=== PATIENT | male | born 1955 | race Caucasian/White ===

== ENCOUNTER 2020-08-11 11:21 | Day surgery (SDC) | payer MEDICARE, BC ==
[~2020-08-11] VITALS: Ht 182.9 cm; Wt 99.5 kg
[~2020-08-11 11:21] MED LIST: ALLO100 PO; ASPI325 PO; ASPI81CH PO; Aspir 8181 MG PO; CALC.25 PO; CALCAVITD PO; CEPH500 PO; COLC.6 PO; CYAN100 PO; Colace100 MG PO; Crestor40 MG PO; Crutch1 EACH; DIVA500ER PO; DULO30 PO; DULO60 PO; ENOX100I SQ; ENTRESTO 24 MG1 EACH PO; FENO160 PO; FERR325 PO; FISH OIL 1,2001 EAC7 PO; FISH1000 PO; FLUT.05NI; FURO40 PO; Furosemide40 MG PO; GABA300 PO; GEMF600 PO; GLIP10 PO; GLIP5 PO; HYDACE5 PO; HYDACE5325 PO; HYDCHL25 PO; HYDMOR2 PO; HYDR1TAB94 PO; Hydrocodone-Ap1 EA23 PO; LEVEMIR FL100 UNIT/1 SC; LEVSOD100 PO; LORA2 PO; LOSA25 PO; LOVA20 PO; Lopressor 25 mg25 MG PO; MAGN84 PO; MAGNESIUM OXID500 MG PO; METO25; METO25ER PO; MULVITMINF PO; MYCO250 PO; Micro-K10 MEQ; NIAC500 PO; NITR.4SL SL; OMEP20ER PO; OMEPRAZOLE MAGN20 MG PO; ONDA4 PO; OXYACE5T PO; POTA10T PO; POTCHL10ER PO; POTCHL20ER PO; PRED5 PO; Percocet 5-3251 EACH PO; QUALAQUIN; RAPAMUNE PO; RXHYDMOR2 PO; RXONDA4ODT MM; SELENIUM PO; SIMV40 PO; SIROLIMUS; TESTTP TOP; TOUJEO SOL300 UNIT/1 SC; TOUJEO SOL300 UNIT/1 SQ; TOUJEO SOL300 UNIT/2 SQ; UBID10 PO; WARF10 PO; WARF4 PO
== END 2020-08-11 14:38 | disposition home or self-care (01) ==
LOC: ORSCSDS 11:21
PROVIDERS: Internal Medicine Gastroenterology
PROC: 0DBM8ZX Excision of Descending Colon, Via Natural or Artificial Opening Endoscopic, Diagnostic (ICD-10-PCS; principal; 2020-08-11 12:45)
DX: Z86.010 Personal history of colon polyps (principal); D12.4 Benign neoplasm of descending colon; K57.30 Diverticulosis of large intestine without perforation or abscess without bleeding; K64.8 Other hemorrhoids; G47.33 Obstructive sleep apnea (adult) (pediatric); Z94.0 Kidney transplant status; Z95.818 Presence of other cardiac implants and grafts; I10 Essential (primary) hypertension; I25.10 Atherosclerotic heart disease of native coronary artery without angina pectoris; I25.2 Old myocardial infarction; E11.9 Type 2 diabetes mellitus without complications; K21.9 Gastro-esophageal reflux disease without esophagitis; Z79.899 Other long term (current) drug therapy; Z79.84 Long term (current) use of oral hypoglycemic drugs; Z79.4 Long term (current) use of insulin
CPT/HCPCS: 82947; 88305; J2704; J7120

== ENCOUNTER 2021-04-10 11:02 | Inpatient (IN) | payer MEDICARE, BC ==
[~2021-04-10] VITALS: Ht 182.9 cm; Wt 93.9 kg
[2021-04-10 11:45] LABS: Hematocrit 44.2 % (37.0-53.0); Hemoglobin 14.2 g/dL (13.5-17.5); Mean Corpuscular HGB 30.7 pg (26.0-34.0); Mean Corpuscular HGB Conc 32.1 g/dL (31.5-36.5); Mean Corpuscular Volume 96 fL (80-100); Mean Platelet Volume 10.8 fL (9.1-12.4); Platelet Count 111 K/mm3 (150-400); RDW Coefficient Variation 13.8 % (11.7-14.2); RDW Standard Deviation 48.6 fL (35.1-46.3); Red Blood Cell Count 4.62 M/mm3 (4.30-5.90)
[2021-04-10 12:03] LABS: Albumin, Blood 3.1 g/dL (3.4-5.0); Albumin/Globulin Ratio 0.9 (0.8-1.8); Bilirubin, Total 1.1 mg/dL (0.1-1.0); Bun/Creatinine Ratio 15.2 (12.0-20.0); Calcium, Blood 9.4 mg/dL (8.5-10.1); Creatinine, Blood 3.16 mg/dL (0.60-1.20); Globulin, Blood 3.6 g/dL (2.2-4.0); Potassium, Blood 4.6 mmol/L (3.5-5.5); Total Protein, Blood 6.7 g/dL (6.4-8.2)
[2021-04-10 12:25] LABS: Prothrombin Time Results 10.8 Sec (9.7-11.5)
[2021-04-10 12:36] LABS: BAND PERCENT MAN 29 % (0-8); BASOPHILS PERCENT MAN 0 % (0-2); EOSINOPHILS PERCENT MAN 0 % (0-6); LYMPHOCYTES ABSOLUTE MAN 0.19 K/mm3 (0.84-5.20); LYMPHOCYTES PERCENT MAN 5 % (21-46); MONOCYTES PERCENT MAN 0 % (4-13); NEUTROPHILS ABSOLUTE MAN 3.61 K/mm3 (1.96-9.15); SEG NEUTROPHILS PERCENT MAN 66 % (41-73); TOTAL CELLS COUNTED 100
[2021-04-10] MEDS ORDERED: INSPRA PO (13:55)
[2021-04-10] MEDS ORDERED: FAMO10 PO (13:56)
[2021-04-10] MEDS ORDERED: GABA300 PO (13:57)
[2021-04-10] MEDS ORDERED: METO25ER PO (13:58)
[2021-04-10] MEDS ORDERED: ENTRESTO 24 MG1 EAC2 PO (14:00)
[2021-04-10 16:44] LABS: Source, Urine Clean Catch
[2021-04-10 16:47] LABS: Appearance, Urine Hazy (Clear); Blood, Urine 1+ (Neg); Color, Urine Amber (P-Yellow); Glucose Qualitative, Urine Neg (Neg); Ketones, Urine 1+ (Neg); Leukocyte Esterase, Urine 1+ (Neg); Nitrite, Urine Neg (Neg); Protein, Urine 3+ (Neg); Specific Gravity, Urine 1.025 (1.003-1.022); Urobilinogen, Urine NORM (Normal)
[2021-04-10 16:59] LABS: Bilirubin, Urine 1+ (Neg)
[2021-04-10 17:00] LABS: Amorphous Light (0-Heavy); Bacteria Many /hpf; Red Blood Cells, Urine Rare /hpf (0-2); Squamous Epithelial Cells Rare /hpf (Few)
[2021-04-10] MEDS ORDERED: Amiodarone HCl200 MG PO (17:42)
[2021-04-10] MEDS ORDERED: VITAMIN D31000 UNI1 PO (17:43)
[2021-04-10] MEDS ORDERED: TRULICITY1.5 MG/0.1 SC (17:45)
--- NOTE | 2021-04-10 19:31 | NUR ---
PT ARRIVAL...SUMMARY... PT ARRIVED ON UNIT AT 1705. PT IS A&Ox4 AND ADMITTED FOR SEPSIS AND RENAL FAILURE. PT IS ON 10MCG OF LEVOPHED RUNNING INTO A LEFT AC 18G IV. IV SITE LOOKS GOOD, NO SWELLING OR PAIN NOTED. PT EDUCATED ON LEVOPHED INFILTRATION AND TO ALERT STAFF IF HE NOTES ANY INCREASED PAIN/BURNING AT THE IV SITE OR TO THE SURROUNDING AREA. PT IS IN NSR IN THE 70'S-80'S WITH MAPS >65. PT IS ON RA WITH O2 SATS >90%. L/S CLEAR IN THE UPPER LOBES, RIGHT MID AND LEFT LOWER, CRACKLES HEARD IN THE RIGHT BASE. BT PRESENT AND HYPOACTIVE, ABD IS SOFT, SLIGHTLY TENDER TO PALP. MORRIS IS PATENT AND DRAINING DARK YELLOW/ROCAEL URINE TO GRAVITY. ONCE PT WAS SETTLED IN THE ROOM THE LEVOPHED WAS SLOWLY TITRATED FROM 10MCG TO 5 MCG KEEPING MAPS >65. PT WAS TAKEN TO CT SCAN WITH THIS RN AND AMAIRANI MULLINS AND BROUGHT BACK TO THE ROOM. PT'S DAUGHTER AT THE BEDSIDE FOR VISITING HOURS. PT DENIES ANY CHEST PAIN/PRESSURE N/V OR SOB. PT DENIES ANY BACK/FLANK PAIN. REPORT WAS GIVEN TO ONCOMING RN.
--- NOTE | 2021-04-10 22:50 | NUR ---
ASSUMED PT CARE FROM MARBIN REYES AT 1915 PT SITTING UP IN BED COMMUNICATING WITH DAUGHTER, WHOM WAS AT BEDSIDE AT TIME OF REPORT. PT ALERT AND ORIENTED AND ABLE TO MAKE NEEDS KNOWN. NS INFUSING AT 100MLS/HR. LEVOPHED INFUSING PERIPHERALLY VIA 18G TO LEFT AC AT 5MCG/MIN. HOWEVER, BP STABLE WITH SBP 150'S; THEREFORE, TURNED LEVOPHED OFF SHORTLY AFTER ASSUMPTION OF CARE. PT DENIED ANY PAIN. AFEBRILE WITH TEMP MORRIS CATHETER IN PLACE AND DRAINING MINIMAL AMOUNTS OF DARK, ROCAEL COLORED URINE TO GRAVITY. PT NSR WITH HR 70'S; HX OF CABG. AICD TO LEFT UPPER CHEST WALL. AV FISTULA TO RIGHT FOREARM WITH POSITIVE BRUIT/THRILL. PT STATES HE HAS NEVER RECEIVED DIALYSIS. HAS ABDOMINAL SCAR S/P KIDNEY TRANSPLANT. PT STATES HIS SON CAN BRING HIS MEDS HERE TOMORROW; DR. ARGUELLES AWARE. PT DOWNGRADED TO PCU STATUS PER DR. ARGUELLES D/T STABLE BP'S WITH LEVOPHED OFF AT THIS TIME. WILL CONTINUE TO MONITOR. PT ABLE TO REPOSITION SELF IN BED AND MAKE HIS NEEDS KNOWN. CALL LIGHT IS WITHIN REACH.
[2021-04-11 03:38] LABS: Hematocrit 36.6 % (37.0-53.0); Hemoglobin 11.7 g/dL (13.5-17.5)
[2021-04-11 03:58] LABS: Albumin, Blood 3.1 g/dL (3.4-5.0); Anion Gap 5 mmol/L (6-16); Blood Urea Nitrogen 44 mg/dL (8-24); Bun/Creatinine Ratio 16.9 (12.0-20.0); CO2, Blood 23 mmol/L (21-32); Calcium, Blood 8.3 mg/dL (8.5-10.1); Chloride, Blood 108 mmol/L (98-108); Creatinine, Blood 2.61 mg/dL (0.60-1.20); Glomerular Filtration Rate 26 (60-); Glucose, Blood 207 mg/dL (70-99); Magnesium, Blood 2.3 mg/dL (1.6-2.4); Potassium, Blood 4.7 mmol/L (3.5-5.5); Sodium, Blood 136 mmol/L (136-145)
--- NOTE | 2021-04-11 05:22 | NUR ---
END OF SHIFT SUMMARY NO SIGNIFICANT CHANGES THIS SHIFT. NS INFUSING AT 100MLS/HR. GOOD URINE OUTPUT WITH 1200CC OUT THIS SHIFT. BP'S STABLE, SEE FLOWSHEET. LEVOPHED HAS BEEN OFF SINCE BEGINNING OF SHIFT. PT DOWNGRADED TO PCU STATUS AROUND 2230. CALL LIGHT IS WITHIN REACH; PT ABLE TO MAKE NEEDS KNOWN. WILL CONTINUE TO MONITOR UNTIL REPORT IS HANDED OFF TO ONCOMING RN.
[2021-04-11] MEDS ORDERED: Crestor20 MG PO (09:00)
--- NOTE | 2021-04-11 12:20 | NUR ---
REASSESSMENT PT HAS BEEN ALERT AND ORIENTED THIS MORNING. AT FIRST HE WAS UPSET BECAUSE HE WAS CONCERNED ABOUT GETTING HIS USUAL HOME MEDS, BUT THROUGHOUT THE MORNING WE GOT THOSE ORDERED HOW HE LIKES TO TAKE THEM AT HOME AND PT HAS BEEN MORE AT EASE SINCE THEN. PT ALSO DIDN'T LIKE THE BREAKFAST HE GOT SO NEW BREAKFAST ORDERED FOR HIM AND PT FILLED OUT THE MENU SO HE LIKED LUNCH BETTER. PT'S BP HAS BEEN WNL THIS SHIFT. HR SB INT HE UPPER 50S TO SR IN THE 70S. LUNGS ARE CLEAR, RA. DR. BARON GAVE OK TO JACKELIN MORRIS AND IT WAS DC'D WITHOUT COMPLICATIONS. PT GOT UP TO THE SHOWER AND HAS BEEN SITTING IN THE CHAIR FOR MOST OF THE MORNING. DR. BARON GAVE OK FOR PT TO BE MEDICAL STATUS, NO TELE. NO OTHER CONCERNS FROM PT AT THIS TIME.
--- NOTE | 2021-04-11 15:46 | NUR ---
TRANSFER PT TRANSFERRED TO RM 209 VIA WITH RN. REPORT GIVEN TO MARBIN MARLEY. PT'S SON WITH HIM AT TIME OF TRANSPORT. ALL BELONGINGS TRANSFERRED WITH PT. PT TOLERATED TRANSFER WELL.
--- NOTE | 2021-04-11 17:24 | NUR ---
NO ACUTE CHANGES SINCE ARRIVAL TO FLOOR. PT HAS BEEN AA0X4, DENIES ANY PAIN OR NAUSEA. IV FLUIDS INFUSING PER EMAR. PT HAS BEEN VISITING WITH FAMILY IN ROOM. HE HAS BEEN ABLE TO VOID. PLAN IS TO AWAIT BLOOD CULTURE RESULTS FOR SENSATIVITY AND CONTINUE WITH IV HYDRATION.
[2021-04-12 04:49] LABS: BASOPHILS ABSOLUTE AUTO 0.01 K/mm3 (0.00-0.23); BASOPHILS PERCENT AUTO 0 % (0-2); EOSINOPHILS PERCENT AUTO 0 % (0-6); Hematocrit 36.9 % (37.0-53.0); Hemoglobin 11.8 g/dL (13.5-17.5); IMMATURE GRAN ABSOLUTE AUTO 0.07 K/mm3 (0.00-0.10); IMMATURE GRAN PERCENT AUTO 1 % (0-1); LYMPHOCYTES ABSOLUTE AUTO 0.49 K/mm3 (0.84-5.20); LYMPHOCYTES PERCENT AUTO 6 % (21-46); MONOCYTES ABSOLUTE AUTO 0.56 K/mm3 (0.16-1.47); MONOCYTES PERCENT AUTO 7 % (4-13); Mean Corpuscular HGB 29.7 pg (26.0-34.0); Mean Corpuscular Volume 93 fL (80-100); Mean Platelet Volume 11.3 fL (9.1-12.4); NEUTROPHILS ABSOLUTE AUTO 7.24 K/mm3 (1.96-9.15); NEUTROPHILS PERCENT AUTO 87 % (41-73); Platelet Count 122 K/mm3 (150-400); RDW Coefficient Variation 13.2 % (11.7-14.2); RDW Standard Deviation 45.3 fL (35.1-46.3); Red Blood Cell Count 3.97 M/mm3 (4.30-5.90); White Blood Cell Count 8.37 K/mm3 (4.00-11.30)
[2021-04-12 05:10] LABS: Albumin, Blood 2.8 g/dL (3.4-5.0); Albumin/Globulin Ratio 0.9 (0.8-1.8); Bilirubin, Total 0.5 mg/dL (0.1-1.0); Bun/Creatinine Ratio 20.3 (12.0-20.0); Calcium, Blood 8.6 mg/dL (8.5-10.1); Creatinine, Blood 1.72 mg/dL (0.60-1.20); Globulin, Blood 3.1 g/dL (2.2-4.0); Magnesium, Blood 2.2 mg/dL (1.6-2.4); Phosphorus, Blood 2.4 mg/dL (2.5-4.9); Potassium, Blood 4.4 mmol/L (3.5-5.5); Total Protein, Blood 5.9 g/dL (6.4-8.2)
--- NOTE | 2021-04-12 06:09 | NUR ---
A/OX4. VSS ON RA. DENIES PAIN. NO N/V. CONTINOUS IV FLUIDS INFUSING. BLADDER SCAN AT 220, PT ABLE TO VOID AFTER. SLEEPING B/W CARE. USING CALL LIGHT TO MAKE NEEDS KNOWN.
[2021-04-12] MEDS ORDERED: CEFP200 PO (12:10)
--- NOTE | 2021-04-12 14:09 | NUR ---
04/12/21- per Dr. Sparrow, pt is stable to d/c home. Pt to follow up with PCP within 1 week. Pt left before was able to meet with him. TRAVIS was not discussed. -kjwAdmit: : Severe sepsis with acute organ dysfunction A/P: Unknown source at this time. Urine and blood cultures pending, although urinalysis not suggestive of infection, CXR unremarkable for pneumonia. ICD could be possible source, vs intra-abdominal -- CT A/P pending - Admit to ICU - Continue IVF - Will cover broadly at this time with vanc and zosyn - Severe sepsis requiring pressor support; MAP did improve with levophed in the ER - Appreciate private branch exchange repairer help with pressor management while in the ICU 2: Acute kidney failure A/P: In the setting of polycystic kidney disease s/p bilateral nephrectomy Pt's GFR had decreased from 50 on 11/19 to 39 recently so PCP had switched his spironolactone to eplerenone 25mg daily - Appreciate nephrology's help with management 3: Chronic systolic (congestive) heart failure A/P: Seems to be compensated at this time but will continue to closely monitor fluid status in light of his recent fluid resuscitation History of EF 30% in 2017 which was the reason for his ICD placement - Restart home eplerenone once he stabilizes hemodynamically - He was started on Entresto by cardiology and follows with Dr Gregorio. Holding for now in light of his hypotension - Per PCP records he had also been started on amiodarone 200mg daily after wearing a Zio patch in January 2021 which I do not see on his home med list; will clarify 4: Kidney transplant rejection A/P: Has required chronic immunosuppressive medications - continue home rapamune 2mg QHS and CellCept 250mg 3caps BID. He also has been taking lasix 40mg PRN for LE swelling 5: Type 2 diabetes mellitus with diabetic neuropathy, with long-term current use of insulin A/P: Controlled, recent A1c 6.9% Continue outpatient Trulicity 6: Hyperlipidemia A/P: f/u outpatient 7: Hypothyroidism A/P: continue levothyroxine 100mcg 8: JESSICA (obstructive sleep apnea) A/P: continue CPAP use
--- NOTE | 2021-04-12 15:06 | NUR ---
DISCHARGE: PACKET PRINTED AND PT EDUCATED. IV DC'D WNL. NO SCRIPTS NEEDED, PT MEDS FAXED TO [facility]. PT DENIED NEED FOR WHEELCHAIR, LEFT UNIT AT ABOUT 1230 ON FOOT.
== END 2021-04-12 13:04 | disposition home or self-care (01) | DRG 698 ==
LOC: ER 11:02 → ICUW 13:06 → ERHOLD 13:06 → ICUW 17:05 → SURS 04-11 15:45
PROVIDERS: Internal Medicine Nephrology; Physician Assistant; ADMIT Family Medicine
PROC: 3E033XZ Introduction of Vasopressor into Peripheral Vein, Percutaneous Approach (ICD-10-PCS; principal; 2021-04-10)
DX: T86.13 Kidney transplant infection (principal); A41.51 Sepsis due to Escherichia coli [E. coli]; R65.21 Severe sepsis with septic shock; N17.9 Acute kidney failure, unspecified; E87.1 Hypo-osmolality and hyponatremia; I50.22 Chronic systolic (congestive) heart failure; I13.0 Hypertensive heart and chronic kidney disease with heart failure and stage 1 through stage 4 chronic kidney disease, or unspecified chronic kidney disease; N39.0 Urinary tract infection, site not specified; T86.12 Kidney transplant failure; Z20.822 Contact with and (suspected) exposure to COVID-19; N16 Renal tubulo-interstitial disorders in diseases classified elsewhere; E03.9 Hypothyroidism, unspecified; E86.9 Volume depletion, unspecified; M10.9 Gout, unspecified; E78.5 Hyperlipidemia, unspecified; I25.5 Ischemic cardiomyopathy; M54.5 Low back pain; E11.42 Type 2 diabetes mellitus with diabetic polyneuropathy; M81.0 Age-related osteoporosis without current pathological fracture; E55.9 Vitamin D deficiency, unspecified; I25.10 Atherosclerotic heart disease of native coronary artery without angina pectoris; G47.33 Obstructive sleep apnea (adult) (pediatric); D63.1 Anemia in chronic kidney disease; E11.22 Type 2 diabetes mellitus with diabetic chronic kidney disease; M47.812 Spondylosis without myelopathy or radiculopathy, cervical region; Z95.0 Presence of cardiac pacemaker; N18.30 Chronic kidney disease, stage 3 unspecified; Z88.8 Allergy status to other drugs, medicaments and biological substances; Z79.4 Long term (current) use of insulin; Z79.82 Long term (current) use of aspirin; Z79.899 Other long term (current) drug therapy; Z79.52 Long term (current) use of systemic steroids; Z86.711 Personal history of pulmonary embolism; Z95.2 Presence of prosthetic heart valve; Z90.49 Acquired absence of other specified parts of digestive tract; Z98.890 Other specified postprocedural states; Z95.1 Presence of aortocoronary bypass graft; Z87.891 Personal history of nicotine dependence
CPT/HCPCS: 36415; 51702; 51798; 71045; 74176; 76770; 80053; 80061; 80069; 80195; 81001; 82043; 82306; 82947; 83605; 83735; 83970; 84100; 84443; 85014; 85018; 85025; 85610; 85730; 86644; 86645; 86850; 86900; 86901; 87040; 87077; 87086; 87186; 93005; 93010; 93975; 94760; 96365-59; 99285-25; A9270; J1650; J1720; J2543; J7030; J7060; J7120; J7517; J7520; P9046

== ENCOUNTER → 2021-11-06 | Outpatient (CLI) | payer MEDICARE, BC ==
[~2021-11-06] MED LIST changes: +Amiodarone HCl200 MG PO; +CEFP200 PO; +Crestor20 MG PO; +ENTRESTO 24 MG1 EAC2 PO; +FAMO10 PO; +INSPRA PO; +TRULICITY1.5 MG/0.1 SC; +VITAMIN D31000 UNI1 PO
[2021-11-06 10:31] LABS: BASOPHILS ABSOLUTE AUTO 0.07 K/mm3 (0.00-0.23); BASOPHILS PERCENT AUTO 1 % (0-2); EOSINOPHILS ABSOLUTE AUTO 0.21 K/mm3 (0.00-0.68); EOSINOPHILS PERCENT AUTO 2 % (0-6); Hematocrit 44.3 % (37.0-53.0); Hemoglobin 14.3 g/dL (13.5-17.5); IMMATURE GRAN ABSOLUTE AUTO 0.14 K/mm3 (0.00-0.10); IMMATURE GRAN PERCENT AUTO 2 % (0-1); LYMPHOCYTES ABSOLUTE AUTO 1.86 K/mm3 (0.84-5.20); LYMPHOCYTES PERCENT AUTO 21 % (21-46); MONOCYTES ABSOLUTE AUTO 1.23 K/mm3 (0.16-1.47); MONOCYTES PERCENT AUTO 14 % (4-13); Mean Corpuscular HGB 30.3 pg (26.0-34.0); Mean Corpuscular HGB Conc 32.3 g/dL (31.5-36.5); Mean Corpuscular Volume 94 fL (80-100); Mean Platelet Volume 10.4 fL (9.1-12.4); NEUTROPHILS ABSOLUTE AUTO 5.27 K/mm3 (1.96-9.15); NEUTROPHILS PERCENT AUTO 60 % (41-73); Platelet Count 179 K/mm3 (150-400); RDW Coefficient Variation 13.8 % (11.7-14.2); Red Blood Cell Count 4.72 M/mm3 (4.30-5.90); White Blood Cell Count 8.78 K/mm3 (4.00-11.30)
[2021-11-06 10:39] LABS: Bun/Creatinine Ratio 13.6 (12.0-20.0); Calcium, Blood 9.2 mg/dL (8.5-10.1); Creatinine, Blood 1.54 mg/dL (0.60-1.20); Potassium, Blood 4.6 mmol/L (3.5-5.5); Uric Acid, Blood 4.2 mg/dL (3.5-7.2)
== END | disposition home or self-care (01) ==
LOC: LAB SHORT 10:25
PROVIDERS: General Practice
DX: S66.411A Strain of intrinsic muscle, fascia and tendon of right thumb at wrist and hand level, initial encounter (principal); R53.81 Other malaise
CPT/HCPCS: 80048; 84550; 85025

== ENCOUNTER 2022-05-25 05:59 | Day surgery (SDC) | payer MEDICARE, BC ==
[~2022-05-25] VITALS: Ht 182.9 cm; Wt 90.0 kg
[~2022-05-25 05:59] MED LIST changes: +FISH OIL PO; +LASIX40 MG PO; +METO50ER PO
--- NOTE | 2022-05-25 09:14 | NUR ---
PATIENT RETURNED FROM THE [facility] S/P INTERVENTION WITH DR. LIN. SBAR RECEIVED FROM MARBIN ROMERO AND TR BAND TO THE RIGHT RADIAL WITH 8 ML OF AIR. PURSE STRING SUTURES TO THE AV FISTULA RIGHT ARM AND RFA ANGIOSEAL. ALL SITES CDI, NO HEMATOMA, NO BLEEDING. DOPPLER PULSES NOTED.
--- NOTE | 2022-05-25 09:46 | NUR ---
NIBP LOW, IVF OPEN AND BOLUS GIVEN. RFA SITE UNCHANGED. PATIENT SLEEPING RECHECK NIBP COMING UP. CONTINUE TO MONITOR.
--- NOTE | 2022-05-25 10:10 | NUR ---
PATIENT AWAKE AND SITTING UP 45 DEGREES. BREAKFAST SERVED. VVS. NIBP STABLE. CALL LIGHT IN REACH.
--- NOTE | 2022-05-25 11:22 | NUR ---
1100 PURSE STRING SUTURES REMOVED. SITE CLEANED AND CLOTH DOT PLACED. TR BAND HAS BEEND FLAT FOR 30 MINUTES, SINCE 1030. REMOVED AT 1115 AND SITE CLEANED ALSO. CLOTH DOT PLACED. WHITE BOARD REPLACED. PATIENT UP OOB AND DRESSED. REVIEWED AND ALL QUESTIONS ANSWERED AND COPIES GIVEN. SON WORKS IN THE PHARMACY AND WILL BE HERE FOR DISCHARGE.
--- NOTE | 2022-05-25 11:54 | NUR ---
1135 PATIENT DISCHARGED HOME VIA WHEELCHAIR WITH SON.
== END 2022-05-25 11:30 | disposition home or self-care (01) ==
LOC: MHTC 05:59
DX: I70.208 Unspecified atherosclerosis of native arteries of extremities, other extremity (principal); I77.0 Arteriovenous fistula, acquired; I87.309 Chronic venous hypertension (idiopathic) without complications of unspecified lower extremity; I12.9 Hypertensive chronic kidney disease with stage 1 through stage 4 chronic kidney disease, or unspecified chronic kidney disease; N18.30 Chronic kidney disease, stage 3 unspecified; E11.22 Type 2 diabetes mellitus with diabetic chronic kidney disease; E78.5 Hyperlipidemia, unspecified; I48.91 Unspecified atrial fibrillation; G47.33 Obstructive sleep apnea (adult) (pediatric); Z88.1 Allergy status to other antibiotic agents; Z88.6 Allergy status to analgesic agent; Z88.8 Allergy status to other drugs, medicaments and biological substances; Z79.899 Other long term (current) drug therapy; Z79.82 Long term (current) use of aspirin
CPT/HCPCS: 76937; 99152; 99153; C1760; C1769; C1894; J1200; J1644; J2250; J3010; J7030; J7040; Q9967

== ENCOUNTER 2022-06-19 10:35 | Emergency (ER) | payer MEDICARE, BC ==
[~2022-06-19] VITALS: Ht 182.9 cm; Wt 88.9 kg
== END 2022-06-19 13:21 | disposition home or self-care (01) ==
LOC: ER 10:35
DX: M79.89 Other specified soft tissue disorders (principal); M20.001 Unspecified deformity of right finger(s); M79.632 Pain in left forearm; E78.5 Hyperlipidemia, unspecified; E03.9 Hypothyroidism, unspecified; I50.9 Heart failure, unspecified; G47.33 Obstructive sleep apnea (adult) (pediatric); E11.9 Type 2 diabetes mellitus without complications; Z95.0 Presence of cardiac pacemaker; Z95.1 Presence of aortocoronary bypass graft; Z79.899 Other long term (current) drug therapy; Z79.52 Long term (current) use of systemic steroids; Z79.84 Long term (current) use of oral hypoglycemic drugs; Z79.82 Long term (current) use of aspirin; Z88.6 Allergy status to analgesic agent; Z88.1 Allergy status to other antibiotic agents; Z88.8 Allergy status to other drugs, medicaments and biological substances
CPT/HCPCS: 93931

== ENCOUNTER → 2023-11-30 | Outpatient (CLI) | payer MEDICARE ==
[2023-11-30 16:59] LABS: Body Fluid Crystals NEG (NEGATIVE)
== END ==
LOC: LAB SHORT 15:17 → LAB 15:17
PROVIDERS: Physician Assistant
DX: M25.431 Effusion, right wrist (principal)
CPT/HCPCS: 87070; 87075; 87205; 89060

== ENCOUNTER 2024-02-09 12:04 | Day surgery (SDC) | payer MEDICARE, BC ==
[~2024-02-09] VITALS: Ht 182.9 cm; Wt 84.2 kg
[~2024-02-09 12:04] MED LIST changes: +Atropine Sulfate 0.1 MG/ML 10ML SYR ONE; +Glycopyrrolate 0.2 MG/ML 1MLVIAL ONE; +Lactated Ringer's 0 ML IV ONE; +Lidocaine 2% 5 ML SDV ONE; +Lidocaine HCl/Pf 1% 5 ML VIAL ONE; +Methylene Blue 1% 100 MG/10 ML VIAL ONE; +Ondansetron HCl 2 MG / ML 2ML Vial ONE; +ePHEDrine Sulfate 50 MG/ML 1ML Injection ONE
[2024-02-09] MEDS ORDERED: NS 1,000 ML IV ONE ×2 (12:55→13:01)
[2024-02-09] MEDS ORDERED: propofoL 50 ML IV ONE (13:11)
[2024-02-13 09:10] VITALS: BP 97/73
== END 2024-02-09 14:30 | disposition home or self-care (01) ==
LOC: ORSCSDS 12:04
PROVIDERS: Internal Medicine Gastroenterology
PROC: 0DBL8ZX Excision of Transverse Colon, Via Natural or Artificial Opening Endoscopic, Diagnostic (ICD-10-PCS; principal; 2024-02-09 14:30)
DX: Z12.11 Encounter for screening for malignant neoplasm of colon (principal); Z86.010 Personal history of colon polyps; D12.3 Benign neoplasm of transverse colon; K57.30 Diverticulosis of large intestine without perforation or abscess without bleeding; Z94.0 Kidney transplant status; E11.9 Type 2 diabetes mellitus without complications; E03.9 Hypothyroidism, unspecified; E78.5 Hyperlipidemia, unspecified; G47.33 Obstructive sleep apnea (adult) (pediatric); K21.9 Gastro-esophageal reflux disease without esophagitis; Z95.1 Presence of aortocoronary bypass graft; I12.9 Hypertensive chronic kidney disease with stage 1 through stage 4 chronic kidney disease, or unspecified chronic kidney disease; I25.10 Atherosclerotic heart disease of native coronary artery without angina pectoris; E11.22 Type 2 diabetes mellitus with diabetic chronic kidney disease; N18.9 Chronic kidney disease, unspecified; Z87.891 Personal history of nicotine dependence; Z79.60 Long term (current) use of unspecified immunomodulators and immunosuppressants; Z79.82 Long term (current) use of aspirin; Z79.899 Other long term (current) drug therapy
CPT/HCPCS: 82947; 88305; J0461; J2001; J2405; J2704; J7030; J7120; Q9968

== ENCOUNTER 2024-09-30 11:13 | Emergency (ER) | payer MEDICARE, BC ==
[~2024-09-30] VITALS: Ht 182.9 cm; Wt 83.9 kg
[~2024-09-30 11:13] MED LIST changes: -Atropine Sulfate 0.1 MG/ML 10ML SYR ONE; -Glycopyrrolate 0.2 MG/ML 1MLVIAL ONE; -Lactated Ringer's 0 ML IV ONE; -Lidocaine 2% 5 ML SDV ONE; -Lidocaine HCl/Pf 1% 5 ML VIAL ONE; -Methylene Blue 1% 100 MG/10 ML VIAL ONE; -Ondansetron HCl 2 MG / ML 2ML Vial ONE; -ePHEDrine Sulfate 50 MG/ML 1ML Injection ONE
[2024-09-30 11:50] VITALS: BP 101/76
[2024-09-30] MEDS ORDERED: Acetaminophen 500 MG Tab PO ONE (14:40)
== END 2024-09-30 15:00 | disposition home or self-care (01) ==
LOC: ER 11:13
DX: S92.354A Nondisplaced fracture of fifth metatarsal bone, right foot, initial encounter for closed fracture (principal); M25.551 Pain in right hip; X58.XXXA Exposure to other specified factors, initial encounter; E78.5 Hyperlipidemia, unspecified; Z79.899 Other long term (current) drug therapy; Z88.1 Allergy status to other antibiotic agents; Z79.82 Long term (current) use of aspirin; Z79.84 Long term (current) use of oral hypoglycemic drugs; Z79.890 Hormone replacement therapy; Z87.891 Personal history of nicotine dependence
CPT/HCPCS: 29515; 73502; 73630; 99283-25; A9270

== ENCOUNTER → 2025-01-14 | Outpatient (CLI) | payer MEDICARE, BC ==
[2025-01-14 10:07] LABS: BASOPHILS ABSOLUTE AUTO 0.04 K/mm3 (0.00-0.23); BASOPHILS PERCENT AUTO 0 % (0-2); EOSINOPHILS ABSOLUTE AUTO 0.03 K/mm3 (0.00-0.68); EOSINOPHILS PERCENT AUTO 0 % (0-6); Hematocrit 46.7 % (37.0-53.0); Hemoglobin 14.7 g/dL (13.5-17.5); IMMATURE GRAN ABSOLUTE AUTO 0.03 K/mm3 (0.00-0.10); IMMATURE GRAN PERCENT AUTO 0 % (0-1); LYMPHOCYTES PERCENT AUTO 11 % (21-46); MONOCYTES ABSOLUTE AUTO 0.92 K/mm3 (0.16-1.47); MONOCYTES PERCENT AUTO 10 % (4-13); Mean Corpuscular HGB 28.7 pg (26.0-34.0); Mean Corpuscular HGB Conc 31.5 g/dL (31.5-36.5); Mean Corpuscular Volume 91 fL (80-100); Mean Platelet Volume 10.3 fL (9.1-12.4); NEUTROPHILS ABSOLUTE AUTO 7.34 K/mm3 (1.96-9.15); NEUTROPHILS PERCENT AUTO 79 % (41-73); Platelet Count 221 K/mm3 (150-400); RDW Coefficient Variation 14.4 % (11.7-14.2); RDW Standard Deviation 48.5 fL (35.1-46.3); Red Blood Cell Count 5.12 M/mm3 (4.30-5.90); White Blood Cell Count 9.36 K/mm3 (4.00-11.30)
[2025-01-14 10:17] LABS: Albumin, Blood 3.3 g/dL (3.4-5.0); Albumin/Globulin Ratio 0.7 (0.8-1.8); Bilirubin, Total 0.7 mg/dL (0.1-1.0); Bun/Creatinine Ratio 10.8 (12.0-20.0); Calcium, Blood 10.3 mg/dL (8.5-10.1); Creatinine, Blood 1.95 mg/dL (0.60-1.20); Globulin, Blood 4.5 g/dL (2.2-4.0); Potassium, Blood 4.1 mmol/L (3.5-5.5); Total Protein, Blood 7.8 g/dL (6.4-8.2)
== END ==
LOC: LAB SHORT 10:03 → LAB 10:03
PROVIDERS: Family Medicine
DX: R11.2 Nausea with vomiting, unspecified (principal)
CPT/HCPCS: 80053; 83690; 85025

== ENCOUNTER → 2025-07-02 | Outpatient (CLI) | payer MEDICARE, BC | LOC: LAB 08:34 → LAB SHORT 08:34 | DX: J20.9 Acute bronchitis, unspecified (principal) | CPT/HCPCS: 87070; 87205 ==